=== PATIENT | male | born 1975 | race Caucasian/White ===

== ENCOUNTER 2021-04-01 07:29 | Inpatient (IN) | payer OTHER ==
[~2021-04-01] VITALS: Ht 182.9 cm; Wt 91.6 kg
--- NOTE | ~2021-04-01 | H ---
[address] [address] HISTORY AND PHYSICAL Name: VANESSA SILVERIO Room: [place] [address] ADM IN ..#: [id number] Admission: 04/01/21 Attend Phys: Sushant Gordon MD, F Discharge: Date of : 71 Report #: [id number] THIS REPORT FOR: cc: FAM - No family physician/PCP FAM - No family physician/PCP [facility],Medical Records Staff ~ For History and Physical please refer to the consultation note in the patient's medical record. By: 1120Medical Records Staff SARAY /VIVIENNE
[2021-04-01 07:33] VITALS: BP 146/100
[2021-04-01 07:57] LABS: ABSOLUTE EOSINOPHILS 0.1 thou/uL (0.0-0.7); ABSOLUTE LYMPHOCYTES 2.3 thou/uL (0.8-5.3); ABSOLUTE MONOCYTES 0.5 thou/uL (0.0-1.2); ABSOLUTE NEUTROPHILS 1.9 thou/uL (1.6-8.1); BASOPHILS 0.8 %; HEMATOCRIT 46.9 % (42.0-52.0); HEMOGLOBIN 16.4 gm/dL (14.0-18.0); LYMPHOCYTES 47.9 %; MCH 31.6 pg (26.0-34.0); MCHC 34.9 g/dL (28.0-37.0); MCV 90.4 fL (80.0-100.0); MONOCYTES 9.4 %; MPV 7.8 fl. (7.2-11.1); NUCLEATED RBCS 0 /100WBC; PLATELET COUNT* 192 thou/uL (150-400); POLYS 39.9 %; RBC 5.19 mil/uL (4.50-6.00); RDW-CV 13.4 % (10.5-14.5); WBC 4.9 thou/uL (4.0-11.0)
[2021-04-01 08:04] LABS: CALCIUM 8.7 mg/dL (8.5-10.1)
[2021-04-01 08:08] LABS: ALBUMIN 4.2 g/dL (3.4-5.0); TOTAL BILIRUBIN 0.3 mg/dL (<0.1-1.0); TOTAL PROTEIN 7.5 g/dL (6.4-8.2)
[2021-04-01 08:11] VITALS: BP 146/100
[2021-04-01 08:59] VITALS: BP 149/74
--- NOTE | 2021-04-01 10:23 | EKG ---
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
--- NOTE | 2021-04-01 14:35 | NUR ---
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 Spoke to mayra over the phone while patient was in the recovery room. Per , the patient lives at home in a house with his fiance and kids. There are stairs in the home. Patient is independent with ADLS and was driving and working prior to admission. No hx of DME, HH, rehab/SNF, dialysis, infusion therapy or BHS services. Patient does not have a PCP but mayra states the patient just got health insurance and she will schedule a PCP appt with her doctor for Sunday. Patient is safe to dc back home. Tentative dc plan for today or tomorrow. Patient has no CM needs at this time.
--- NOTE | 2021-04-01 17:02 | CARD ---
[address] [address] CARDIAC CATH REPORT Name: VANESSA SILVERIO Room: [place] [address] ADM IN [place].#: [id number] Admission: 04/01/21 Attend Phys: Sushant Gordon MD, F Discharge: Date of : 71 Report #: [id number] THIS REPORT FOR: cc: FAM - No family physician/PCP FAM - No family physician/PCP Sushant Gordon MD [facility] ~ APPROVED REPORT Study performed: 04/01/2021 07:45:49 Patient Details Patient Status: ED Room #: 15 The patient is a 46 year-old male Event Personnel Sushant Gordon Global Compensation Director, Rylie Hargrove RN RN, Kerrie Nettles, Ayb Cooper RTR Scrub Procedures Performed Art Access - R radial artery Left Heart Cath w/or w/o Coronaries [id number] [facility] Hemostasis with Hemoband Indication Abnormal ECG, Chest pain Risk Factors Tobacco History () Admission/Lab Medications/Medications given during procedure Aspirin, Heparin Unfract. Procedure Narrative The patient was brought emergently to the Cardiac Catheterization Laboratory and was prepped and draped in a sterile manner. The right wrist was infiltrated with 1% Lidocaine subcutaneous anesthesia. IV conscious sedation was used throughout procedure with appropriate monitoring and was performed in the presence of a registered nurse who was an independent trained observer other than the physician performing the procedure. A 6Fr. Slender [place] sheath was inserted into the right radial artery. Coronary angiography was performed using coronary diagnostic catheters. The right coronary system was accessed and visualized with a 6Fr JR4 catheter. The left coronary system was accessed and visualized with a 6Fr JL4 catheter. The left ventricle was accessed and visualized with a 6Fr [place] [address] CARDIAC CATH REPORT Name: JEAN CLAUDEVANESSA Carmelita Room: [address] [facility]#: [id number] Admission: 04/01/21 Attend Phys: Sushant Gordon MD, F Discharge: Date of : 71 Report #: [id number] Left ventricular/Aortic Valve gradient assessed via catheter pullback. Left ventriculogram was performed in cohen projection. Closure device was deployed with a 6 Fr vascband. The patient tolerated the procedure well and there were no complications associated with the procedure. There was no hematoma. Intraoperative Conscious Sedation Fentanyl 25.0 mcg No sedation given Fluoro Time: 2.3 minutes Dose: DAP 81363 cGycm2 625 mGy Contrast Type and Amount: Visipaque 100 ml Coronary Angiography The patient's coronary anatomy is right dominant. [place] Artery Percent Stenosis Left Main: 0 % Prox LAD: 0 % Mid/Distal LAD: 0 % Circumflex: 0 % RCA: 0 % Ramus: % Left Ventriculography The left ventricle is normal in size with normal contractility. The left ventricular ejection fraction is estimated to be 50-55%. Left ventricular wall motion abnormalities are present. There is no mitral insufficiency. Hemodynamics The aortic pressure is 122/81 mmHg with a mean of 101 mmHg. The left ventricular pressure is 119/10 mmHg with a mean of mmHg. The left ventricular end diastolic pressure is 12 mmHg. There was no gradient across the aortic valve upon pullback. Pullback from the left ventricle to the aorta revealed no gradient across the aortic valve. Conclusion 1. normal coronary arteries 2. LVEF 50-55% 3. suspect noncardiac chest pain [place] [address] CARDIAC CATH REPORT Name: VANESSA SILVERIO Room: [address] [place] [facility]#: [id number] Admission: 04/01/21 Attend Phys: Sushant Gordon MD, F Discharge: Date of : 71 Report #: [id number] Smoking Cessation Aggressive Medical Therapy <ELECTRONICALLY SIGNED> By: Sushant Gordon MD, FACC 04/01/211700 00 crispin Gordon MD, FACC /INF
--- NOTE | 2021-04-01 17:51 | CON ---
[address] [address] CONSULTATION Name: VANESSA SILVERIO Room: [place] [address] ADM IN [place]#: [id number] Admission: 04/01/21 Attend Phys: Sushant Gordon MD, F Discharge: Date of : 71 Report #: [id number] THIS REPORT FOR: cc: FAM - No family physician/PCP FAM - No family physician/PCP Sushant Gordon MD [facility] ~ DATE OF CONSULTATION: 04/01/2021 CARDIOLOGY CONSULTATION HISTORY OF PRESENT ILLNESS: The patient is a 46-year-old white male who was last seen in the emergency room after he complained of chest pain. The patient notes when he was 16 years old, he apparently had a heart catheterization and was given nitroglycerin. However, he has done well since that time. He stays very active. For the past 2 days, he has had almost a constant ache in his chest. It goes in his left arm, makes him short of breath. It has been persistent. He has had no fever. He has been coughing. He has had no edema. He has had no palpitations, syncope. The pain is not related to food. He has had no bleeding. He denied trauma to his chest. He went to work this morning, finally the pain got severe so he drove himself to the emergency room. He was admitted for further evaluation and treatment. PAST MEDICAL AND SURGICAL HISTORY: He has had no surgical procedures. He has no history of hypertension, diabetes, hyperlipidemia. MEDICATIONS: He is on no medications. ALLERGIES: Has no known drug allergies. FAMILY HISTORY: His father had a stent. SOCIAL HISTORY: He is . He and his lives here in [place]. 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 Smokes a pack of cigarettes a day, does drink alcohol, smoke marijuana occasionally. REVIEW OF SYSTEMS: No history of stroke. He has had asthma in the past. No history of liver disease, kidney disease, cancer, psychiatric illness, chronic skin condition. PHYSICAL EXAMINATION: GENERAL: Revealed a middle-aged male, appeared in mild distress secondary to chest pain. VITAL SIGNS: His blood pressure is 130/70, pulse is 60. HEENT: He is anicteric. Conjunctivae are pink. Mucosa membranes moist. NECK: Veins not distended[place] [address] CONSULTATION Name: JEAN CLAUDEVANESSA Carmelita Room: [address] IN [facility]#: [id number] Admission: 04/01/21 Attend Phys: Sushant Gordon MD, F Discharge: Date of : 71 Report #: [id number] NECK: Supple. CHEST: Clear to auscultation. HEART: Regular rate and rhythm. No murmurs. ABDOMEN: Soft. EXTREMITIES: Had no edema. Posterior tibial pulse 2+ . SKIN: Cool and dry. NEUROLOGIC: Nonfocal. LABORATORY DATA: ECG shows a sinus rhythm with ST-segment elevation in lead II, III and aVF. IMPRESSION AND RECOMMENDATIONS: 1. Acute inferior ST-elevation myocardial infarction. Recommend cardiac catheterization. 2. Tobacco abuse. The critical care time would be from 7:30 a.m. until 9 p.m. <ELECTRONICALLY SIGNED> By: Sushant Gordon MD, FACC 04/01/21 1751 0708 [id number] Gordon MD, FAC /nt
== END 2021-04-05 14:14 | disposition home or self-care (01) | DRG 282 ==
LOC: M.ERS 07:29 → M.TBA-CV 07:56 → M.TBA-ER 07:56 → M.TBA-CV 08:12
PROVIDERS: Emergency Medicine; ADMIT Internal Medicine Cardiovascular Disease; ATTEND Internal Medicine Cardiovascular Disease
PROC: B211YZZ Fluoroscopy of Multiple Coronary Arteries using Other Contrast (ICD-10-PCS; principal; 2021-04-01)
PROC: B215YZZ Fluoroscopy of Left Heart using Other Contrast (ICD-10-PCS; principal; 2021-04-01)
PROC: 4A023N7 Measurement of Cardiac Sampling and Pressure, Left Heart, Percutaneous Approach (ICD-10-PCS; principal; 2021-04-01)
DX: I21.19 ST elevation (STEMI) myocardial infarction involving other coronary artery of inferior wall (principal); F17.210 Nicotine dependence, cigarettes, uncomplicated; Z20.822 Contact with and (suspected) exposure to COVID-19; I25.2 Old myocardial infarction; Z95.5 Presence of coronary angioplasty implant and graft

== ENCOUNTER 2021-04-01 19:00 | Emergency (ER) | payer OTHER ==
[~2021-04-01] VITALS: Ht 182.9 cm; Wt 91.6 kg
[2021-04-01 20:12] VITALS: BP 0/0
== END 2021-04-01 20:12 | disposition home or self-care (01) ==
LOC: M.ERS 19:00
DX: R22.31 Localized swelling, mass and lump, right upper limb (principal); M79.601 Pain in right arm; Z48.01 Encounter for change or removal of surgical wound dressing

== ENCOUNTER 2021-08-10 09:09 | Emergency (ER) | payer OTHER ==
[~2021-08-10] VITALS: Ht 182.9 cm; Wt 99.8 kg
[2021-08-10 10:07] LABS: BE 0.8 mmol/L (-2 to +3); PCO2 42.6 mmHg (35.0-45.0); PO2 69.1 mmHg (75.0-100.0)
[2021-08-10 10:35] LABS: ABSOLUTE LYMPHOCYTES 1.7 thou/uL (0.8-5.3); ABSOLUTE MONOCYTES 0.3 thou/uL (0.0-1.2); ABSOLUTE NEUTROPHILS 1.9 thou/uL (1.6-8.1); BASOPHILS 0.6 %; EOSINOPHILS 0.9 %; HEMOGLOBIN 16.3 gm/dL (14.0-18.0); LYMPHOCYTES 42.8 %; MCH 31.6 pg (26.0-34.0); MCHC 34.7 g/dL (28.0-37.0); MONOCYTES 7.6 %; MPV 7.9 fl. (7.2-11.1); NUCLEATED RBCS 0 /100WBC; PLATELET COUNT* 151 thou/uL (150-400); POLYS 48.1 %; RBC 5.16 mil/uL (4.50-6.00); RDW-CV 13.6 % (10.5-14.5)
[2021-08-10 10:43] LABS: CALCIUM 8.6 mg/dL (8.5-10.1)
[2021-08-10 10:45] LABS: APTT 30.2 Seconds (25.0-31.3); PROTIME 10.3 Seconds (9.20-11.50)
[2021-08-10 10:54] LABS: ALBUMIN 3.8 g/dL (3.4-5.0); TOTAL BILIRUBIN 0.4 mg/dL (<0.1-1.0); TOTAL PROTEIN 7.3 g/dL (6.4-8.2)
[2021-08-10] MEDS ORDERED: MEDROLDOSEPACK PO (11:40)
[2021-08-10] MEDS ORDERED: AZITHROMYCIN 2250 MG PO (11:40)
[2021-08-10 12:03] VITALS: BP 140/80
--- NOTE | 2021-08-10 13:57 | EKG ---
[place] [address] ELECTROCARDIOGRAM REPORT Name: VANESSA SILVERIO Room: 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
== END 2021-08-10 12:04 | disposition home or self-care (01) ==
LOC: M.ERS 09:09
PROVIDERS: Emergency Medicine
DX: U07.1 COVID-19 (principal); J40 Bronchitis, not specified as acute or chronic